=== PATIENT | female | born 1955 | race Asian ===

== ENCOUNTER 2019-10-04 07:11 | Outpatient (CLI) | payer OTHER, MEDICARE ==
[~2019-10-04 07:11] MED LIST: CALC0.258 PO; CARV25TA55 PO; HYG25 PO; LEVO250T2 PO; POTA10CA68 PO; VALS160T2 PO
== END 2019-10-04 17:53 | disposition home or self-care (01) ==
LOC: SRD 07:11
PROVIDERS: ATTEND Internal Medicine
DX: I70.0 Atherosclerosis of aorta (principal); E21.3 Hyperparathyroidism, unspecified; R05 Cough
CPT/HCPCS: 71046-TC

== ENCOUNTER 2019-10-18 07:20 | Outpatient (CLI) | payer OTHER, MEDICARE ==
[2019-10-18 08:22] LABS: BASOPHILS % (AUTO) 0.5 % (0.0-2.0); EOSINOPHILS # (AUTO) 0.1 K/uL (0.0-0.4); EOSINOPHILS % (AUTO) 2.2 % (0.0-4.0); HEMATOCRIT 33.7 % (36-48); HEMOGLOBIN 11.3 g/dL (12.0-16.0); LYMPHOCYTES # (AUTO) 1.9 K/uL (1.0-5.5); MEAN CORPUSCULAR HEMOGLOBIN 29 pg (27-31); MEAN CORPUSCULAR HGB CONC 34 % (32-36); MEAN CORPUSCULAR VOLUME 88 fL (79.0-98.0); MONOCYTES # (AUTO) 0.3 K/uL (0.0-1.0); MONOCYTES % (AUTO) 7.1 % (1.7-9.3); NEUTROPHILS # (AUTO) 1.8 K/uL (1.8-7.7); NEUTROPHILS % (AUTO) 44.2 % (40.0-70.0); PLATELET COUNT (AUTO) 236 K/uL (130-430); RED BLOOD CELL COUNT(AUTO) 3.84 MIL/uL (4.2-6.2); RED CELL DISTRIBUTION WIDTH 14.8 % (9.0-15.0); WHITE BLOOD COUNT (AUTO) 4.1 K/uL (4.8-10.8)
[2019-10-18 08:28] LABS: BILIRUBIN,URINE NEGATIVE (NEGATIVE); BLOOD, URINE NEGATIVE (NEGATIVE); CLARITY/URINE CLEAR (CLEAR); COLOR,URINE YELLOW (YELLOW); GLUCOSE,URINE NEGATIVE (NEGATIVE); KETONES,URINE NEGATIVE (NEGATIVE); LEUKOCYTE ESTERASE ,URINE NEGATIVE (NEGATIVE); NITRITE, URINE NEGATIVE (NEGATIVE); PH,URINE 7.5 (5.0-8.0); PROTEIN URINE NEGATIVE (NEGATIVE); UROBILINOGEN,URINE 0.2 (0.2-1.0)
[2019-10-18 08:43] LABS: ALBUMIN 3.6 g/dL (3.4-4.8); CALCIUM 8.6 mg/dL (8.4-11.0); CREATININE 1.04 mg/dL (0.55-1.30); PHOSPHORUS 4.3 mg/dL (2.7-4.5); POTASSIUM 3.4 mmol/L (3.5-5.1); TOTAL BILIRUBIN 0.5 mg/dL (0.0-1.0)
[2019-10-21 20:45] LABS: HEMOGLOBIN A1C 5.9 % (4.8-5.6)
[2019-10-21 20:48] LABS: PTH, INTACT <6 pg/mL (15-65)
== END 2019-10-18 20:43 | disposition home or self-care (01) ==
LOC: SLB 07:20
PROVIDERS: ATTEND Internal Medicine
DX: I12.9 Hypertensive chronic kidney disease with stage 1 through stage 4 chronic kidney disease, or unspecified chronic kidney disease (principal); E11.22 Type 2 diabetes mellitus with diabetic chronic kidney disease; N18.4 Chronic kidney disease, stage 4 (severe); E55.9 Vitamin D deficiency, unspecified; E78.5 Hyperlipidemia, unspecified
CPT/HCPCS: 36415; 80053; 80061; 81003; 82306; 83036; 83735-TC; 83970; 84100-TC; 85025

== ENCOUNTER 2019-10-25 07:23 | Outpatient (CLI) | payer OTHER, MEDICARE ==
[2019-10-25 10:32] LABS: TOTAL IRON BIND. CAPACITY 411 ug/dL (250-450)
[2019-10-26 10:31] LABS: FERRITIN 20 ng/mL (15-150); FOLATE (FOLIC ACID) >20.0 ng/mL (>3.0)
== END 2019-10-26 21:10 | disposition home or self-care (01) ==
LOC: SLB 07:23
PROVIDERS: ATTEND Internal Medicine
DX: R80.9 Proteinuria, unspecified (principal); I12.9 Hypertensive chronic kidney disease with stage 1 through stage 4 chronic kidney disease, or unspecified chronic kidney disease; E11.22 Type 2 diabetes mellitus with diabetic chronic kidney disease; N18.4 Chronic kidney disease, stage 4 (severe); E78.5 Hyperlipidemia, unspecified; Z88.0 Allergy status to penicillin
CPT/HCPCS: 36415; 82607; 82728; 82746; 83540-TC; 83550-TC